=== PATIENT | male | born 1995 | race Caucasian/White ===

== ENCOUNTER 2017-03-01 15:06 | Outpatient (CLI) | payer OTHER ==
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
== END 2017-03-01 15:07 ==
LOC: RAD 15:06
PROVIDERS: ATTEND Family Medicine
DX: M54.6 Pain in thoracic spine (principal); M54.5 Low back pain
CPT/HCPCS: 72072; 72100